=== PATIENT | female | born 1990 | race Caucasian/White ===

== ENCOUNTER 2018-01-12 13:00 | Inpatient (IN) | payer MEDICAID ==
[~2018-01-12] VITALS: Ht 165.1 cm; Wt 98.2 kg
[2018-01-12 13:10] VITALS: BP 128/78
[2018-01-12] MEDS ORDERED: OXYTOCIN 30U/ 0.9% NaCL 500ML 500 ML IV PRN (17:12)
[2018-01-12] MEDS ORDERED: OXYTOCIN 30U/ 0.9% NaCL 500ML 500 ML IV ONE (17:12)
[2018-01-12] MEDS ORDERED: D5%-LACTATED RINGERS 1,000 ML IV SCH (17:12)
[2018-01-12] MEDS ORDERED: MISOPROSTOL 200 MCG TABLET ONE (17:24)
[2018-01-12] MEDS ORDERED: NEWBORN KIT ONE (17:24)
[2018-01-12] MEDS ORDERED: OXYTOCIN 30U/ 0.9% NaCL 500ML 500 ML ONE ×2 (17:24→18:02)
[2018-01-12] MEDS ORDERED: AMPICILLIN 2 GM in SODIUM CHLORIDE 0.9% 100 ML IVPB ONE (17:24)
[2018-01-12] MEDS ORDERED: LIDOCAINE/PF 1%, 30ML ONE (17:24)
[2018-01-12] MEDS: LACTATED RINGERS 1,000 ML IV SCH ×2 (17:25→22:43)
[2018-01-12] MEDS ORDERED: FENTANYL PF 100 MCG/2ML IVPush PRN (17:30)
[2018-01-12] MEDS ORDERED: FENTANYL PF 100 MCG/2ML IV PRN (17:30)
[2018-01-12 17:47] LABS: BASOPHILS # (AUTO) 0.04 x10^3/uL (0-0.1); BASOPHILS % (AUTO) 0 % (0-1); EOSINOPHILS # (AUTO) 0.04 x10^3/uL (0-0.4); EOSINOPHILS % (AUTO) 0 % (1-7); LYMPHOCYTES # (AUTO) 1.61 x10^3/uL (1-3.4); LYMPHOCYTES % (AUTO) 14 % (22-44); MD NO; MEAN CORPUSCULAR HEMOGLOBIN 30.2 pg (27.0-34.8); MEAN CORPUSCULAR HGB CONC 33.6 g/dL (32.4-35.8); MEAN CORPUSCULAR VOLUME 89.8 fL (80-100); MEAN PLATELET VOLUME 9.4 fL (7.4-10.4); MONOCYTES # (AUTO) 0.48 x10^3/uL (0.2-0.8); MONOCYTES % (AUTO) 4 % (2-9); NEUTROPHILS # (AUTO) 9.57 x10^3/uL (1.8-6.8); NEUTROPHILS % (AUTO) 81 % (42-75); PLATELET COUNT 226 x10^3/uL (130-400); RED BLOOD COUNT 4.46 x10^6/uL (3.82-5.3); RED CELL DISTRIBUTION WIDTH 14.3 % (9.6-15.2)
[2018-01-12] MEDS ORDERED: PREN-3 PO (18:55)
[2018-01-12 19:19] VITALS: BP 124/80
[2018-01-12] MEDS ORDERED: ONDANSETRON 2MG/ML, 2ML ONE (19:26)
[2018-01-12] MEDS: AMPICILLIN 1 GM in SODIUM CHLORIDE 0.9% 100 ML IVPB SCH (21:00)
[2018-01-12] MEDS ORDERED: CALCIUM CARBONATE 500 MG TAB.CHEW ONE (21:41)
[2018-01-12] MEDS: CALCIUM CARBONATE 500 MG TAB.CHEW PO PRN (21:43)
[2018-01-12] MEDS ORDERED: FENTANYL PF 100 MCG/2ML ONE ×2 (22:35→23:28)
[2018-01-12] MEDS ORDERED: FENTANYL/BUPIV./NS/PF 250 ML EPIDCONT ONE (23:29)
[2018-01-12] MEDS ORDERED: BUPIVACAINE 0.25% ONE (23:29)
[2018-01-13] MEDS ORDERED: FENTANYL/BUPIV./NS/PF 250 ML EPIDCONT SCH (00:07)
[2018-01-13] MEDS ORDERED: EPHEDRINE 50 MG/ML, 1ML IVPush PRN (00:30)
[2018-01-13] MEDS ORDERED: ONDANSETRON 2MG/ML, 2ML IVPush PRN (00:30)
[2018-01-13] MEDS ORDERED: LACTATED RINGERS 1,000 ML IVBOLUS PRN (00:30)
[2018-01-13] MEDS: AMPICILLIN 1 GM in SODIUM CHLORIDE 0.9% 100 ML IVPB SCH ×2 (00:57→05:03)
[2018-01-13] MEDS: LACTATED RINGERS 1,000 ML IV SCH ×2 (00:57→06:57)
[2018-01-13] MEDS ORDERED: CALCIUM CARBONATE 500 MG TAB.CHEW ONE (05:31)
[2018-01-13] MEDS: CALCIUM CARBONATE 500 MG TAB.CHEW PO PRN ×2 (05:33→14:50)
[2018-01-13] MEDS ORDERED: ONDANSETRON 2MG/ML, 2ML ONE (07:07)
[2018-01-13] MEDS ORDERED: BUPIVACAINE 0.25% ONE (09:37)
[2018-01-13] MEDS: OXYTOCIN 30U/ 0.9% NaCL 500ML 500 ML IV SCH ×2 (10:51→20:51)
[2018-01-13] MEDS ORDERED: RHOGAM FROM BLOOD BANK 1 NOTE EA IM/IV ONE (11:00)
[2018-01-13] MEDS ORDERED: MEASLES,MUMPS&RUBELLA VACC/PF 0.5 ML SQ PRN (11:00)
[2018-01-13] MEDS ORDERED: METHYLERGONOVINE 0.2 MG/ML IM PRN (11:00)
[2018-01-13] MEDS ORDERED: ACETAMINOPHEN 325 MG TABLET PO PRN (11:00)
[2018-01-13] MEDS ORDERED: DIPH,PERTUSS(ACELL),TET VAC/PF NC IM-VACC PRN (11:00)
[2018-01-13] MEDS ORDERED: IBUPROFEN 600 MG TABLET ONE (11:00)
[2018-01-13] MEDS ORDERED: CARBOPROST TROMETHAMINE 250 MCG/ML, 1ML IM PRN (11:00)
[2018-01-13] MEDS ORDERED: OXYcodone IR 5MG TABLET PO PRN (11:00)
[2018-01-13] MEDS ORDERED: MISOPROSTOL 200 MCG TABLET PO PRN (11:00)
[2018-01-13] MEDS: IBUPROFEN 600 MG TABLET PO PRN ×2 (11:03→17:46)
[2018-01-13] MEDS ORDERED: OXYTOCIN 30U/ 0.9% NaCL 500ML 500 ML ONE (11:26)
[2018-01-13 12:55] VITALS: BP 130/79
[2018-01-13 15:18] VITALS: BP 119/80
[2018-01-13 18:08] LABS: BASOPHILS # (AUTO) 0.07 x10^3/uL (0-0.1); BASOPHILS % (AUTO) 0 % (0-1); EOSINOPHILS % (AUTO) 0 % (1-7); LYMPHOCYTES # (AUTO) 1.49 x10^3/uL (1-3.4); LYMPHOCYTES % (AUTO) 8 % (22-44); MD NO; MEAN CORPUSCULAR HEMOGLOBIN 30.7 pg (27.0-34.8); MEAN CORPUSCULAR HGB CONC 34.1 g/dL (32.4-35.8); MEAN CORPUSCULAR VOLUME 90.1 fL (80-100); MEAN PLATELET VOLUME 9.3 fL (7.4-10.4); MONOCYTES # (AUTO) 0.79 x10^3/uL (0.2-0.8); MONOCYTES % (AUTO) 4 % (2-9); NEUTROPHILS # (AUTO) 15.95 x10^3/uL (1.8-6.8); NEUTROPHILS % (AUTO) 87 % (42-75); PLATELET COUNT 212 x10^3/uL (130-400); RED BLOOD COUNT 3.81 x10^6/uL (3.82-5.3); RED CELL DISTRIBUTION WIDTH 14.1 % (9.6-15.2)
[2018-01-13] MEDS: DOCUSATE 100 MG CAPSULE PO PRN (19:28)
[2018-01-13 19:45] VITALS: BP 132/71
[2018-01-13] MEDS: OXYcodone/APAP 5/325MG TABLET PO PRN (20:24)
[2018-01-14 00:03] VITALS: BP 112/71
[2018-01-14] MEDS: OXYcodone/APAP 5/325MG TABLET PO PRN ×4 (03:32→21:01)
[2018-01-14 03:36] VITALS: BP 113/61
[2018-01-14] MEDS: OXYTOCIN 30U/ 0.9% NaCL 500ML 500 ML IV SCH ×2 (06:51→16:51)
[2018-01-14 08:00] VITALS: BP 134/77
[2018-01-14] MEDS: IBUPROFEN 600 MG TABLET PO PRN ×2 (10:31→21:01)
[2018-01-14] MEDS: PRENATAL VIT/IRON/FA 1 EACH TABLET PO SCH (10:31)
[2018-01-14 20:00] VITALS: BP 143/91
[2018-01-15] MEDS: OXYcodone/APAP 5/325MG TABLET PO PRN ×2 (01:03→10:37)
[2018-01-15] MEDS: OXYTOCIN 30U/ 0.9% NaCL 500ML 500 ML IV SCH (02:51)
[2018-01-15] MEDS: PRENATAL VIT/IRON/FA 1 EACH TABLET PO SCH ×2 (08:18→10:37)
[2018-01-15] MEDS: DOCUSATE 100 MG CAPSULE PO PRN ×2 (08:18→10:37)
[2018-01-15 08:47] VITALS: BP 132/80
[2018-01-15] MEDS: IBUPROFEN 600 MG TABLET PO PRN (10:37)
[2018-01-15] MEDS ORDERED: IBUP-1223 PO (12:12)
[2018-01-15] MEDS ORDERED: OXYC-302 PO (12:12)
== END 2018-01-15 12:39 | disposition home or self-care (01) | DRG 775 ==
LOC: LDOP 13:00 → LDIP 14:14 → OBSVTOIN 17:12 → LDIP 17:25 → 2NW 01-13 12:59
PROVIDERS: ADMIT Obstetrics & Gynecology Maternal & Fetal Medicine; ATTEND Obstetrics & Gynecology Maternal & Fetal Medicine
PROC: 10E0XZZ Delivery of Products of Conception, External Approach (ICD-10-PCS; principal; 2018-01-13)
PROC: 3E0234Z Introduction of Serum, Toxoid and Vaccine into Muscle, Percutaneous Approach (ICD-10-PCS; 2018-01-13)
PROC: 3E0R3BZ Introduction of Anesthetic Agent into Spinal Canal, Percutaneous Approach (ICD-10-PCS; 2018-01-13)
PROC: 00HU33Z Insertion of Infusion Device into Spinal Canal, Percutaneous Approach (ICD-10-PCS; 2018-01-13)
PROC: 0HQ9XZZ Repair Perineum Skin, External Approach (ICD-10-PCS; 2018-01-13)
DX: O42.92 Full-term premature rupture of membranes, unspecified as to length of time between rupture and onset of labor (principal); O71.82 Other specified trauma to perineum and vulva; Z37.0 Single live birth; Z3A.38 38 weeks gestation of pregnancy; Z23 Encounter for immunization; O70.9 Perineal laceration during delivery, unspecified
CPT/HCPCS: 36415; 84112; 85025; 86850; 86900; 89060; 90715; G0378; J0290; J2405; J2590; J7120; Q0114